=== PATIENT | female | born 1965 | race Caucasian/White ===

== ENCOUNTER → 2020-06-30 08:37 | Outpatient (BNVA) | payer MEDICAID, SELFPAY | PROVIDERS: Family Provider Registered Nurse; PCP Registered Nurse; Visit Provider Psychiatry & Neurology Psychiatry | DX: F34.1 Dysthymic disorder (principal); Z63.0 Problems in relationship with spouse or partner; F10.21 Alcohol dependence, in remission; F33.1 Major depressive disorder, recurrent, moderate | CPT/HCPCS: 90792 ==

== ENCOUNTER → 2020-07-27 07:46 | Outpatient (BNVA) | payer MEDICAID, SELFPAY | PROVIDERS: Family Provider Registered Nurse; PCP Registered Nurse; Visit Provider Psychiatry & Neurology Psychiatry | DX: F10.99 Alcohol use, unspecified with unspecified alcohol-induced disorder (principal) | CPT/HCPCS: 99214 ==

== ENCOUNTER → 2021-04-26 10:22 | Outpatient (BNVA) | payer MEDICAID, SELFPAY | PROVIDERS: Family Provider Registered Nurse; PCP Registered Nurse; Visit Provider Obstetrics & Gynecology | DX: R32 Unspecified urinary incontinence (principal); N32.81 Overactive bladder | CPT/HCPCS: 81000 ==

== ENCOUNTER → 2021-04-28 13:51 | Outpatient (BNVA) | payer MEDICAID, SELFPAY | PROVIDERS: Family Provider Registered Nurse; PCP Registered Nurse; Visit Provider Internal Medicine | DX: R76.8 Other specified abnormal immunological findings in serum (principal); Z11.59 Encounter for screening for other viral diseases; R53.83 Other fatigue; M25.50 Pain in unspecified joint; G47.00 Insomnia, unspecified; R23.9 Unspecified skin changes | CPT/HCPCS: 99204 ==

== ENCOUNTER 2021-05-04 09:06 | Outpatient (CLI) | payer MEDICAID, SELFPAY ==
[2021-05-04 09:38] LABS: Basophils % 0.6 %; Eosinophils # 0.1 10^3/uL (0.0-0.8); Eosinophils % 1.6 %; Hematocrit 40.2 % (37.0-47.0); Hemoglobin 12.7 g/dL (11.5-15.3); Lymphocytes # 0.8 10^3/uL (0.8-4.8); Lymphocytes % 12.6 %; Mean Corpuscular HGB Conc 31.6 g/dL (30.0-36.0); Mean Corpuscular Hemoglobin 28.1 pg (28.0-34.0); Mean Corpuscular Volume 88.9 fL (81-99); Mean Platelet Volume 10.1 fL (7.4-10.4); Monocytes # 0.5 10^3/uL (0.2-0.9); Monocytes % 7.7 %; Neutrophils % 77.2 %; Nucleated Red Blood Cells % 0 %; Platelet Count 210 10^3/cmm (130-400); Red Blood Count 4.52 10^6/uL (4.1-5.3); Red Cell Distribution Width 13.3 % (12.1-15.1); White Blood Count 6.4 10^3/uL (4.0-10.0)
[2021-05-04 09:50] LABS: Bilirubin Urine Neg (Negative); Blood Urine Neg (Negative); Glucose Urine UA Norm (Normal); Ketones Urine Negative (Negative); Nitrate Urine Negative (Negative); Protein Urine Neg (Negative); Urine Appearance Clear (CLEAR); Urine Color Yellow (Yellow); pH Urine 7 (5-7)
[2021-05-04 09:51] LABS: Add Urine Microscopic? YES; Leukocyte Esterase Urine 1+ (Negative); Squamous Epithelial Cell Urine 0-4 /hpf (0-5); Urobilinogen Urine Norm (Negative); WBC Urine 0-4 /hpf (0-5)
[2021-05-04 10:22] LABS: Cortisol Random 6.43 ug/dL (2.47-19.5); Hepatitis B Core AB, Total Non-Reactive (Nonreactive); Hepatitis B Surface Antigen Non-Reactive (Nonreactive); Hepatitis C Virus Antibody Non-Reactive (Nonreactive)
[2021-05-04 10:23] LABS: Erythrocyte Sedimentation Rate 28 mm/hr (0-15)
[2021-05-04 10:24] LABS: 25 Hydroxy Vitamin D 21 ng/mL (30-100); Alanine Aminotransferase 23 U/L (0-33); Albumin Level 3.9 g/dL (3.5-5.2); Alkaline Phosphatase 87 IU/L (35-105); Anion Gap 12.7 (5-19); Aspartate Amino Transferase 22 U/L (0-32); Blood Urea Nitrogen 13 mg/dL (6-20); Calcium 8.6 mg/dL (8.5-10.5); Carbon Dioxide 29 mmol/L (22-29); Chloride 98 mmol/L (98-107); Creatine Phosphokinase 107 U/L (26-192); Ferritin 90 ng/mL (15-150); Globulin 3.3 g/dL (1.3-4.6); Glomerular Filtration Rate 103.4 mL/min (90-130); Glucose 87 mg/dL (65-115); Osmolality Calculated 281 mOsm/kg (285-295); Phosphorus 3.8 mg/dL (2.5-4.5); Potassium 3.7 mmol/L (3.5-5.1); Sodium 136 mmol/L (136-145); Thyroid Stimulating Hormone 1.42 uIU/mL (0.27-4.20); Total Bilirubin 0.5 mg/dL (0.15-1.2); Total Protein 7.2 g/dL (6.6-8.7); Vitamin B12 404 pg/mL (232-1245)
[2021-05-04 10:39] LABS: Complement C3 148 mg/dL (90-180)
[2021-05-04 12:10] LABS: Free T4 Free Thyroxine 0.95 ng/dL (0.82-1.77)
[2021-05-05 11:56] LABS: COMPLEMENT COMPONENT C3C 154 mg/dL (83-193); COMPLEMENT COMPONENT C4C 33 mg/dL (15-57)
[2021-05-05 13:37] LABS: CENTROMERE B ANTIBODY <1.0 NEG AI (<1.0 NEG); JO-1 ANTIBODY <1.0 NEG AI (<1.0 NEG); RNP ANTIBODY <1.0 NEG AI (<1.0 NEG); SCL-70 ANTIBODY <1.0 NEG AI (<1.0 NEG); SJOGREN'S ANTIBODY (SS-A) <1.0 NEG AI (<1.0 NEG); SM ANTIBODY <1.0 NEG AI (<1.0 NEG); SS-B <1.0 NEG AI (<1.0 NEG)
[2021-05-05 14:12] LABS: Cyclic Citrullinated Peptide <16 UNITS
[2021-05-05 15:58] LABS: ANA SCREEN, IFA NEGATIVE (NEGATIVE)
[2021-05-05 16:27] LABS: THYROID PEROXIDASE ANTIBODIES 1 IU/mL (<9)
[2021-05-06 13:47] LABS: COMPLEMENT, TOTAL (CH50) 49 U/mL (31-60)
[2021-05-09 22:33] LABS: Tissue Transglutaminase IgA Ab <1 U/mL; Tissue transglutaminase Ab.IgG <1 U/mL
[2021-05-10 16:27] LABS: DNA AB (DS) CRITHIDIA,IFA NEGATIVE (NEGATIVE)
[2021-05-10 17:38] LABS: Gliadin Ab.IgA 7 U (<20); Gliadin Ab.IgG 2 U (<20)
[2021-05-11 14:18] LABS: Immunoglobulin A 361 mg/dL (47-310)
== END 2021-05-04 09:07 | disposition home or self-care (01) ==
PROVIDERS: PCP Registered Nurse; Referring Provider Internal Medicine; Visit Provider Surgery
DX: R47.02 Dysphasia (principal); D86.9 Sarcoidosis, unspecified
CPT/HCPCS: 36415; 80053; 81001; 82306; 82533; 82550; 82595; 82607; 82728; 82784; 83516; 83735; 84100; 84439; 84443; 85025; 85651; 86140; 86160; 86162; 86235; 86255; 86376; 86704; 86803; 87340

== ENCOUNTER → 2021-05-26 08:58 | Outpatient (BNVA) | payer MEDICAID, SELFPAY | PROVIDERS: PCP Registered Nurse; Visit Provider Internal Medicine | DX: R76.8 Other specified abnormal immunological findings in serum (principal); R70.0 Elevated erythrocyte sedimentation rate; E55.9 Vitamin D deficiency, unspecified; M25.50 Pain in unspecified joint; G56.23 Lesion of ulnar nerve, bilateral upper limbs; G47.00 Insomnia, unspecified | CPT/HCPCS: 99214 ==

== ENCOUNTER 2022-02-10 07:08 | Day surgery (SDC) | payer MEDICAID, SELFPAY ==
[2022-02-07 10:44] VITALS: BMI 32.5
[2022-02-10] MEDS: sodium chloride 0.9% 1,000 ML 30 ML IV (07:28)
[2022-02-10 07:35] VITALS: BP 152/93; PULSE 69; RESP 18; TEMP 36.1; O2SAT 99
--- NOTE | 2022-02-10 07:49 | ANES.PREANE2 ---
Pre-Anesthetic Assessment Height/Weight: Height 1.75 m Weight 99.79 kg Temp Pulse Resp BP Pulse Ox 97.0 F L 69 18 152/93 99 02/10/22 07:35 02/10/22 07:35 02/10/22 07:35 02/10/22 07:35 02/10/22 07:35 Preop Diagnosis: diagnostic Operation Date: 02/10/22 08:00 Proposed Procedures p EGD Dilation W/ Balloon [id number]/r13.10/r19.7(Not Applicable) - Boris Hartley MD s Colonoscopy(Not Applicable) - Boris Hartley MD Familial anesthetic complications: None Was Beta Iveth taken within 24 hours: Yes Was Clonidine taken within 24 hours: Yes Last intake: Intake Last Liquid Date 02/09/22 Last Liquid Time 21:00 Last Solid Date 02/08/22 Social Alcohol (ETOH Use disorder ) and No tobacco Exam alert, oriented x 3, clear to auscultation bilaterally and regular rate & rhythm Airway Submandibular: within normal limits Cervical ROM: within normal limits Mallampati: Class II Dentition: partials Pulmonary None reported CV/HEM Hypertension METS > 4 None reported Hepatic None reported GI Gastroesophageal Reflux Disease Dysphagia Metabolic None reported Musc/skel None reported Neuropsych Anxiety and Depression Anesthetic Plan ASA status: 2 Anesthesia: Anesthesia Evaluation and General Other: I discussed with the patient risks, goals, and benefits of MAC and general anesthesia. We discussed spectrum of MAC anesthesia including conversion to general as well as possibility of recall of intraoperative stimuli including discomfort/pain. Patient agrees to proceed with MAC. Risk of > 500 ml blood loss (7ml/kg in children): No Medications/Allergies Home Medications Medication Instructions Recorded Confirmed Last Taken Type hydrochlorothiazide 25 mg tablet 25 mg PO DAILY 06/18/20 02/10/22 02/09/22 History lisinopril 40 mg tablet 40 mg PO DAILY 06/18/20 02/10/22 02/09/22 History brexpiprazole 1 mg tablet (Rexulti) 1 mg PO DAILY 04/14/21 02/10/22 02/09/22 History buspirone 5 mg tablet 10 mg PO TID tab 04/14/21 02/10/22 02/09/22 History fluoxetine 40 mg capsule 40 mg PO DAILY 04/14/21 02/10/22 02/09/22 History clonidine HCl 0.1 mg tablet 0.1 mg PO .prn PRN tab 04/19/21 02/10/22 02/09/22 History pantoprazole 20 mg tablet,delayed 20 mg PO DAILY 04/19/21 02/10/22 02/09/22 History release oxybutynin chloride 5 mg 5 mg PO DAILY 30 Days #30 tab 04/26/21 02/10/22 02/09/22 Rx tablet,extended release 24 hr arm brace (Wrist Brace) #2 ea 05/26/21 01/17/22 Unknown Rx cholecalciferol (vitamin D3) 1,250 50,000 unit PO .qweek #14 cap 05/26/21 02/07/22 Unknown Rx mcg (50,000 unit) capsule carvedilol 3.125 mg tablet 3.125 mg PO BID #180 tab 10/26/21 02/10/22 02/09/22 Rx loperamide 2 mg capsule 2 mg PO Q6H PRN 01/17/22 02/10/22 02/09/22 History Allergies Allergy/AdvReac Type Severity Reaction Status Date / Time No Known Allergies Allergy Verified 01/17/22 07:59 PFSH Anesthesia Medical History Alcohol use disorder, moderate, in sustained remission Anxiety Depression Dysthymia Essential hypertension GERD (gastroesophageal reflux disease) Raynauds disease Surgical History H/O bladder repair surgery 2015 H/O: hysterectomy states it was due to cervical cancer History of back surgery History of cholecystectomy History of foot surgery History of left knee replacement History of surgery on arm Hx of external ear surgery Family History Father CAD (coronary artery disease) Diabetes Stroke Heart disease Colon cancer late 60's Family/Other Diabetes paternal aunts and uncles Breast cancer maternal aunt, onset in her 60's Sister Heart disease Denies family history of Ovarian cancer Clotting disorder Hyperlipidemia Anesthesia complication Bleeding disorder Hypertension Uterine cancer Thyroid condition Social History Smoking and tobacco status: never smoked Alcohol intake: former Former alcohol use details: 20 years ago Data Anesthesia Cardiac Studies: No Data to Display
--- NOTE | 2022-02-10 08:24 | P.HP_ITS ---
Same Day Surgery H&P Indication for Procedure/HPI DATE OF PROCEDURE: February 10, 2022 CHIEF COMPLAINT/INDICATIONFOR SURGICAL PROCEDURE: dysphagia /diarrhea PREOP DIAGNOSIS: diagnostic PLANNED PROCEDURE: Operation Date: 02/10/22 08:00 Proposed Procedures p EGD Dilation W/ Balloon [id number]/r13.10/r19.7(Not Applicable) - Boris Hartley MD s Colonoscopy(Not Applicable) - Boris Hartley MD Medications/Allergies* Home Medications Medication Instructions Recorded Confirmed Type hydrochlorothiazide 25 mg tablet 25 mg PO DAILY 06/18/20 02/10/22 History lisinopril 40 mg tablet 40 mg PO DAILY 06/18/20 02/10/22 History brexpiprazole 1 mg tablet (Rexulti) 1 mg PO DAILY 04/14/21 02/10/22 History buspirone 5 mg tablet 10 mg PO TID tab 04/14/21 02/10/22 History fluoxetine 40 mg capsule 40 mg PO DAILY 04/14/21 02/10/22 History clonidine HCl 0.1 mg tablet 0.1 mg PO .prn PRN tab 04/19/21 02/10/22 History pantoprazole 20 mg tablet,delayed 20 mg PO DAILY 04/19/21 02/10/22 History release loperamide 2 mg capsule 2 mg PO Q6H PRN 01/17/22 02/10/22 History Allergies/Adverse Reactions Allergy/AdvReac Type Severity Reaction Status Date / Time No Known Allergies Allergy Verified 01/17/22 07:59 Current Medications: Generic Name Dose Route Start Last Admin Trade Name Freq PRN Reason Stop Dose Admin Sodium Chloride 1,000 mls @ 30 mls/hr 02/10/22 07:30 02/10/22 07:28 Sodium Chloride 0.9% IV 02/11/22 07:29 30 mls/hr .Q24H DHRUV Administration Pertinent History/Comorbid Conditions* Medical History (Updated 01/17/22 @ 08:28 by Boris Hartley MD) Alcohol use disorder, moderate, in sustained remission Anxiety Depression Dysthymia Essential hypertension GERD (gastroesophageal reflux disease) Raynauds disease Surgical History (Updated 01/17/22 @ 08:28 by Boris Hartley MD) H/O bladder repair surgery 2015 H/O: hysterectomy states it was due to cervical cancer History of back surgery History of cholecystectomy History of foot surgery History of left knee replacement History of surgery on arm Hx of external ear surgery Family History (Updated 04/26/21 @ 10:15 by Eli Canales RN) Colon cancer Father late 60's Diabetes Father Family/Other paternal aunts and uncles CAD (coronary artery disease) Father Heart disease Father Sister Breast cancer Family/Other maternal aunt, onset in her 60's Stroke Father Denies family history of Ovarian cancer Clotting disorder Hyperlipidemia Anesthesia complication Bleeding disorder Hypertension Uterine cancer Thyroid condition Social History Smoking and tobacco status: never smoked Alcohol intake: former Former alcohol use details: 20 years ago Pertinent Exam Findings alert, oriented x 3 and regular rate & rhythm Recommendations Surgery/Procedure today Coding Level of Care Code Acute Product Manager Medical Device for Tala Hopper
[2022-02-10 09:15] VITALS: BP 114/75; PULSE 58; RESP 16; TEMP 36.2; O2SAT 97
[2022-02-10 09:26] VITALS: BP 128/84; PULSE 63; RESP 18; O2SAT 96
--- NOTE | 2022-02-10 13:01 | ANE.PACU2 ---
Inpatient post-anesthesia follow up: Airway intact: Yes Vital signs: Temperature 97.2 F Pulse Rate 63 Respiratory Rate 18 Blood Pressure 128/84 Pulse Oximetry 96 Oxygen Delivery Me thod Room Air Oxygen Flow Rate 3 Fraction of Inspir ed Oxygen Hydration adequate: Yes Nausea and vomiting: No Pain level: 1 Mental status: Baseline
== END 2022-02-10 09:47 | disposition home or self-care (01) ==
PROVIDERS: PCP Registered Nurse; Visit Provider Surgery
PROC: 0DJD8ZZ Inspection of Lower Intestinal Tract, Via Natural or Artificial Opening Endoscopic (ICD-10-PCS; CPT 45378; 2022-02-10 08:00)
DX: R19.7 Diarrhea, unspecified (principal); R13.10 Dysphagia, unspecified; K29.70 Gastritis, unspecified, without bleeding; K22.2 Esophageal obstruction; K57.30 Diverticulosis of large intestine without perforation or abscess without bleeding; K64.8 Other hemorrhoids; F41.9 Anxiety disorder, unspecified; F32.9 Major depressive disorder, single episode, unspecified; I10 Essential (primary) hypertension; K21.9 Gastro-esophageal reflux disease without esophagitis; I73.00 Raynaud's syndrome without gangrene; Z80.0 Family history of malignant neoplasm of digestive organs; Z82.49 Family history of ischemic heart disease and other diseases of the circulatory system; Z83.3 Family history of diabetes mellitus; Z82.3 Family history of stroke; Z80.3 Family history of malignant neoplasm of breast
CPT/HCPCS: 43239; 43249; 45380; 82274; 83630; 87493; 87506; 88305; J2704; J7030